=== PATIENT | female | born 1975 | race Caucasian/White ===

== ENCOUNTER → 2020-09-22 12:23 | Outpatient (CLI) | payer OTHER, SELFPAY ==
--- NOTE | ~2020-09-22 | MM_ITS ---
EXAMINATION: MM screening [facility] BI w henri HISTORY: Screening TECHNIQUE: Craniocaudal and mediolateral oblique 3-D tomosynthesis images were obtained and synthetic 2-D images were generated. CAD analysis was submitted and interpreted. COMPARISON: Comparison to multiple prior studies sequentially, with oldest reviewed study dated 04/2016. BREAST PARENCHYMAL COMPOSITION: There are scattered areas of fibroglandular density. FINDINGS: There is no evidence of suspicious mass, calcification, or architectural distortion to sugg est malignancy in either breast. There has been no suspicious interval change. IMPRESSION: 1. No mammographic evidence of malignancy. 2. Recommend routine screening mammography in one year. BI-RADS Category 1: Negative Reviewed, dictated and finalized at location A.
== END ==
PROVIDERS: Visit Provider Obstetrics & Gynecology
DX: Z12.31 Encounter for screening mammogram for malignant neoplasm of breast (principal)
CPT/HCPCS: 77063; 77067

== ENCOUNTER → 2021-11-22 13:49 | Outpatient (CLI) | payer OTHER, SELFPAY ==
--- NOTE | ~2021-11-22 | MMUS_ITS ---
EXAMINATION: MM diagnostic [facility] BI w henri, US breast BI limited HISTORY: Palpable lumps in the upper outer quadrant of the right breast and upper inner quadrant of t he left breast TECHNIQUE: Craniocaudal, mediolateral, and mediolateral oblique 3-D tomosynthesis images of the breas ts were performed and synthetic 2-D images were generated. CAD analysis was submitted and interpreted . High resolution limited bilateral breast ultrasound was performed. COMPARISON: 09/22/2020, 11/13/2018 BREAST PARENCHYMAL COMPOSITION: There are scattered areas of fibroglandular density. FINDINGS: MAMMOGRAPHIC FINDINGS: There is no suspicious mass, calcification, or architectural distortion in either breast to suggest malignancy. Bilateral reduction in breast size consistent with history of intentional weight loss. No mammographic correlate is identified for the reported palpable abnormality of concern in either [address] ULTRASOUND: There is no evidence of focal abnormal solid or cystic mass in the vicinity of the reported palpable abnormality of concern in either breast. IMPRESSION: 1. No specific mammographic or sonographic correlate is identified for the reported palpable abnormal ity of concern in either breast. Further evaluation at this time should be based on clinical assessme nt. Continued follow-up physical examination is recommended. 2. Recommend routine screening mammography in one year. BI-RADS Category 1: Negative Reviewed, dictated and finalized at location A. IMPRESSION: 1. No specific mammographic or sonographic correlate is identified for the repo rted palpable abnormality of concern in either breast. Further evaluation at th is time should be based on clinical assessment. Continued follow-up physical ex amination is recommended. 2. Recommend routine screening mammography in one year. BI-RADS Category 1: Negative
== END ==
PROVIDERS: PCP Physician Assistant; Visit Provider Nurse Practitioner
DX: N63.20 Unspecified lump in the left breast, unspecified quadrant (principal)
CPT/HCPCS: 76642; 77062; 77066; G0279

== ENCOUNTER 2022-02-11 13:46 | Outpatient (CLI) | payer OTHER, SELFPAY | END 2022-02-11 13:47 | disposition home or self-care (01) | PROVIDERS: PCP Physician Assistant; Visit Provider Obstetrics & Gynecology | DX: D25.9 Leiomyoma of uterus, unspecified (principal) | CPT/HCPCS: 36415; 86850; 86900; 86901 ==

== ENCOUNTER 2022-02-16 00:43 | Day surgery (SDC) | payer OTHER, SELFPAY ==
[2022-02-08 09:20] VITALS: BMI 31.7
--- NOTE | 2022-02-08 09:25 | PC.NURSE ---
Report to the Outpatient Waiting Room, entrance under the green pavilion located off [facility], at time 7:30 on date 02/16/22. Planned Procedure Time: 9:30. Time changes happen often and if your time is changed the preop area will call you the afternoon before. - You and your visitor will be asked to self-screen and do not enter if you have any COVID symptoms. - We encourage only one visitor and NO visitors under age 16 are allowed at this time. Your visitor will receive communication by the phone number that is given day of service. - The patient visitor is requested to social distance or may leave the building when not with patient due to restrictions. - A mask is OPTIONAL within the hospital. Patients may have clear liquids (water, carbonated beverages, clear teas, apple juice) until 3 hours prior to surgery (6:30) with a maximum of 20 ounces. - No food from midnight until time of surgery Take the following medications with a SIP of water the morning of surgery: BUPROPION, FLUOXETINE, HYDROXYZINE, CLONAZEPAM IF NEEDED Medications to discontinue per physician: VITAMINS Date to take last dose: 02/12/22 Please no make-up, nail amharic, hairspray, perfume, deodorant, or body powder the day of surgery. No jewelry (including any body piercings) or valuables the day of surgery, leave them at home. Please take a shower or bath the night before, or the morning of, surgery with an antibacterial soap. Wear comfortable, loose fitting clothing. - Jewelry must be removed prior to entering the operating room. Rings and piercings that are not removed may be cut off. - The hospital will not accept responsibility for valuables. - Please leave all valuables, including medications, at home the day of surgery. If you are going home after surgery, a licensed driver's education instructor must drive you home. - NO public transportation without another adult. - We recommend that an adult stay with you for 24 hours following discharge. - We also recommend that you do not drive, make important decision, drink alcoholic beverages, or take any drugs that were not prescribed by your health care provider for at least 24 hours after your discharge time. Follow any additional instructions given to you from your surgeon. If you or anyone in your household have experienced Covid symptoms in the past week, please notify your surgeon or the nurse liaison at the phone number below for possible testing. Telephone instructions given to PT Kyrie MENJIVAR and asked if any additional questions and then verbalized understanding. Patient advised to call surgeon office or pre surgery nurse liaison [phone] if any additional questions.
[2022-02-16] VITALS (11 sets, daily range): BP systolic 86–115; BP diastolic 54–83; PULSE 70–101; RESP 8–18; TEMP 36.4–37.2; O2SAT 95–100
[2022-02-16] MEDS: ACETAMINOPHEN 500 MG TABLET 1000 MG PO (08:14)
[2022-02-16] MEDS: SCOPOLAMINE 1.5 MG PATCH TRANSDERM (08:15)
[2022-02-16] MEDS: LACTATED RINGERS 1,000 ML 30 ML IV CONT ×2 (08:49→11:03)
[2022-02-16] MEDS: KETOROLAC 15 MG/ML VIAL (*BKC) IV PUSH (08:52)
--- NOTE | 2022-02-16 08:56 | WPDHPUPDATE1 ---
History and Physical Update Update Date/Time: 02/16/22 08:56 History and Physical has been reviewed, including an updated exam of the patient. There are NO changes in the patient's condition. Risks, benefits, and alternatives have been discussed and questions answered. Patient agrees to proceed with procedure.
--- NOTE | 2022-02-16 09:17 | P.PNAN_ITS ---
Anes - Initial Pre Proc Eval Procedure: Operation Date: 02/16/22 09:30 Proposed Procedures p Total Laparoscopic Hysterectomy, Bilateral Salpingo Oophorectomy - Jasmin Meléndez MD Date/Time: 02/16/22 09:17 Surgeon: Jasmin Meléndez MD Pre Op Diagnosis: uterine leiomyoma Patient Data Age: 46 Gender: F Height: 1.63 m Weight: 85.2 kg Last Vital Signs Temp 36.5 C 02/16/22 07:53 Pulse 85 02/16/22 07:53 Resp 14 02/16/22 07:53 BP 115/83 02/16/22 07:53 Pulse Ox 100 02/16/22 07:53 O2 Del Method Room Air 02/16/22 07:53 Allergies Allergy/AdvReac Type Severity Reaction Status Date / Time NSAIDS (Non-Steroidal AdvReac Mild Other Verified 02/16/22 08:10 Anti-Inflamma Home Medications Medication Instructions Recorded Confirmed Type bupropion HCl 300 mg 24 hr tablet, 300 mg PO DAILY 02/08/22 02/16/22 History extended release clonazepam 0.5 mg tablet 0.5 mg PO BID PRN Anxiety 02/08/22 02/16/22 History fluoxetine 10 mg capsule 10 mg PO DAILY 02/08/22 02/16/22 History hydroxyzine pamoate 25 mg capsule 25 mg PO BID 02/08/22 02/16/22 History multivitamin 1 tablet PO DAILY 02/08/22 02/16/22 History Patient hx anesthesia problems: none Family hx anesthesia problems: none Results Review: All pre-operative results and documents have been reviewed as part of the pre- operative evaluation. [facility] Past Medical History Medical History (Updated 02/16/22 @ 09:17 by Matt Oro MD) Obesity Surgical History Surgical History (Updated 02/16/22 @ 09:17 by Matt Oro MD) S/P gastric sleeve procedure Social History Social History Smoking status: Never smoker Alcohol intake: current Drinks per week: 2 Substance use: current Substance use type: marijuana Living arrangements: alone Spiritual care concerns: No Anes - Eval Final PreProcedure Day of Procedure 02/16/22 09:17 Patient weight: obese Heart: regular rate and rhythm Lungs: clear to auscultation Airway: Mallampati scale class II Neurological: alert and oriented Last oral intake: >/= 8 hours ASA classification: III Emergent: no Anesthetic plan: proceed Anesthesia type and monitoring: general ETT and standard monitoring Results Review: All pre-operative results and documents have been reviewed as part of the pre- operative evaluation. Informed Consent: The patient's anesthetic plan and its attendant risks and benefits were discussed with the patient/family/POA. Questions were solicited and answers provided to the satisfaction of the patient/family/POA.
[2022-02-16] MEDS: ceFAZolin 2 GM/D5W 50 ML 2 GM/50 ML BAG IVPB (09:30)
[2022-02-16] MEDS: ceFAZolin SODIUM 1 GM VIAL IRRIGATION (09:57)
--- NOTE | 2022-02-16 12:18 | PC.NURSE ---
This patient, Dominick Dickson, was received from PACU on 02/16/22 at 1218. Patient/family oriented to unit policies and routines
[2022-02-16] MEDS: DEXTROSE 5%/0.45% SOD CHL 1,000 ML 125 ML IV CONT (12:39)
[2022-02-16] MEDS: ONDANSETRON INJ 4 MG/2 ML VIAL IV PUSH (12:39)
[2022-02-16] MEDS: KETOROLAC 30 MG/ML VIAL (*BKC) IV PUSH (14:02)
[2022-02-16] MEDS: HYDROcodone/acetaminophen (*CRX) 5-325 MG TABLET 1 TAB PO ×2 (15:02→18:00)
[2022-02-16] MEDS: ESTRADIOL 7 DAY 0.1 MG PATCH TRANSDERM (17:49)
[2022-02-16] MEDS: clonazePAM (*CRX) 0.5 MG TABLET PO (17:49)
[2022-02-16] MEDS: hydrOXYzine pamoate 25 MG CAPSULE PO (17:49)
[2022-02-17] MEDS: HYDROcodone/acetaminophen (*CRX) 5-325 MG TABLET 1 TAB PO (00:54)
[2022-02-17 03:50] VITALS: BP 97/59; PULSE 85; RESP 18; TEMP 36.7; O2SAT 97
[2022-02-17 08:00] VITALS: BP 98/55; PULSE 90; RESP 16; TEMP 37.7; O2SAT 97
--- NOTE | 2022-02-17 08:55 | PM.GYNPNOP ---
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 PRINTING MACHINIST- PN:Subj Post-Op Subjective Date/time seen: 02/17/22 08:55 Subjective: patient has no complaints, patient desires discharge, pain is well controlled and patient is tolerating oral intake Exam Const: General: comfortable and no acute distress GI: GI Palp: Yes Soft to palpation Auscultation: normal bowel sounds Other: incisions CDI Extrem: General: no calf tenderness LABEL PRINTING MACHINIST - PN: Obj Data Vital Signs Vital Signs: Vital Signs - 24 hr 02/16/22 11:03 02/16/22 11:15 02/16/22 11:25 Temperature 97.6 F Pulse Rate 70 88 89 Respiratory Rate 8 L 12 13 Blood Pressure 86/58 L 105/67 94/59 L Pulse Oximetry 95 99 100 Oxygen Delivery Simple Face Mask Simple Face Mask Simple Face Mask Oxygen Flow Rate 8 8 8 02/16/22 11:32 02/16/22 11:45 02/16/22 12:00 Temperature 98.3 F Pulse Rate 87 77 72 Respiratory Rate 13 16 12 Blood Pressure 100/54 L 92/62 L 94/61 L Pulse Oximetry 100 97 96 Oxygen Delivery Room Air Room Air Room Air Oxygen Flow Rate 02/16/22 12:30 02/16/22 16:20 02/16/22 20:01 Temperature 98.0 F 99.0 F 98.2 F Pulse Rate 75 101 H 100 Respiratory Rate 18 18 18 Blood Pressure 95/54 L 105/66 110/63 Pulse Oximetry 100 95 98 Oxygen Delivery Oxygen Flow Rate 02/16/22 22:03 02/17/22 03:50 02/17/22 08:00 Temperature 98.8 F 98.1 F 99.8 F H Pulse Rate 92 85 90 Respiratory Rate 17 18 16 Blood Pressure 105/58 L 97/59 L 98/55 L Pulse Oximetry 96 97 97 Oxygen Delivery Oxygen Flow Rate Intake/Output Intake/Output: Intake & Output 02/14/22 02/15/22 02/16/22 02/17/22 23:59 23:59 23:59 23:59 Intake Total 2900 Output Total 430 Balance 2470 Meds/Results Medications: Active Medications Generic Name Dose Route Start Last Admin Trade Name Freq PRN Reason Stop Dose Admin Hydrocodone Bitart/Acetaminophen 1 tab 02/16/22 12:18 02/17/22 00:54 Hydrocodone/Acetaminophen (*Crx) 5-325 Mg Tablet PO 1 tab Q3H PRN Administration Pain Rated 5 or Less Hydrocodone Bitart/Acetaminophen 1 tab 02/16/22 12:18 Hydrocodone/Acetaminophen (*Crx) 10-325 Mg Tablet PO Q3H PRN Pain Rated 6 or Greater Bupropion HCl 300 mg 02/17/22 09:00 Bupropion Hcl Xl (24 Hr) 150 Mg Tabcr PO DAILY GRACIE Clonazepam 0.5 mg 02/16/22 12:18 02/16/22 17:49 Clonazepam (*Crx) 0.5 Mg Tablet PO 0.5 mg BID PRN Administration Anxiety Estradiol 0.1 mg 02/16/22 14:30 02/16/22 17:49 Estradiol 7 Day 0.1 Mg Patch TRANSDERM 0.1 mg We@0900 GRACIE Administration Fluoxetine HCl 10 mg 02/17/22 09:00 Fluoxetine Hcl 10 Mg Capsule PO DAILY GRACIE Hydroxyzine Pamoate 25 mg 02/16/22 17:00 02/16/22 17:49 Hydroxyzine Pamoate 25 Mg Capsule PO 25 mg BID GRACIE Administration Ketorolac Tromethamine 30 mg 02/16/22 12:18 02/16/22 14:02 Ketorolac 30 Mg/Ml Vial (*Bkc) IV PUSH 02/21/22 12:17 30 mg Q6H PRN Administration Pain Rated 4-6 Multivitamins Therapeutic 1 tablet 02/17/22 09:00 Multivitamins Therapeutic Tab (*Bkc) PO DAILY GRACIE Naloxone HCl 0.1 mg 02/16/22 12:18 Naloxone Hcl 0.4 Mg/Ml Vial IV PUSH Q2M PRN Respiratory rate less than 10 Ondansetron HCl 4 mg 02/16/22 12:18 02/16/22 12:39 Ondansetron Inj 4 Mg/2 Ml Vial IV PUSH 4 mg Q6H PRN Administration Nausea And Vomiting
[2022-02-17] MEDS: buPROPion HCL XL (24 HR) 150 MG TABCR 300 MG PO (09:03)
[2022-02-17] MEDS: MULTIVITAMINS THERAPEUTIC TAB (*BKC) 1 TABLET PO (09:04)
[2022-02-17] MEDS: hydrOXYzine pamoate 25 MG CAPSULE PO (09:04)
[2022-02-17] MEDS: FLUoxetine HCL 10 MG CAPSULE PO (09:04)
[2022-02-17] MEDS: HYDROcodone/acetaminophen (*CRX) 10-325 MG TABLET 1 TAB PO (09:11)
[2022-02-17] MEDS: DOCUSATE SODIUM 100 MG CAPSULE PO (09:15)
--- NOTE | 2022-02-17 10:48 | WPDANESPN ---
Anes - Prog Note Post-Op Date/Time: 02/17/22 10:48 Cardiovascular status: normal Respiratory status: normal Airway patency: baseline Mental status: baseline Post-Op hydration status: normal Vital Signs: Last Vital Signs Temp 37.7 C H 02/17/22 08:00 Pulse 90 02/17/22 08:00 Resp 16 02/17/22 08:00 BP 98/55 L 02/17/22 08:00 Pulse Ox 97 02/17/22 08:00 O2 Del Method Room Air 02/16/22 12:00 O2 Flow Rate 8 02/16/22 11:25 Pain Score (VAS): 2/10 I/O: Intake & Output 02/16/22 02/17/22 02/17/22 23:59 07:59 15:59 Intake Total 1800 Output Total 400 Balance 1400 Post-procedural complaints: none Patient Feedback: Patient satisfied with anesthetic care.
--- NOTE | 2022-02-21 18:54 | P.OP_ITS ---
Procedure Note - Detailed Date of Procedure 02/16/22 Pre-op Diagnosis uterine leiomyoma, menorrhagia, dysmenorrhea Post-op Diagnosis Same Procedure Performed total laparoscopic hysterectomy with bilateral salpingo-oophorectomy Surgeon Jasmin Meléndez MD Anesthesia General Indications uterine leiomyoma, menorrhagia, dysmenorrhea Findings enlarged fibroid uterus, normal-appearing tubes and ovaries Description of Procedure This patient was taken to the operating room. She was prepped and draped in the dorsal lithotomy position after induction of general anesthesia. The uterine manipulator and Corinna cup were placed. This was done with a speculum and tenaculum. The speculum was placed. The cervix was grasped with a tenaculum. The stay sutures were placed at 3 and 9:00 a.m.. The stay sutures of 0 Vicryl were brought through the appropriately sized Corinna cup. The tip of the AURELIO manipulator was placed in the intrauterine cavity. The cup was slid into place around the cervix and into the fornices. It was locked into place. The sutures were then wrapped around the handle and tied under tension. A 5 mm skin incision was made in the left upper quadrant the abdomen. A 5 mm trocar was inserted into the intrauterine cavity under direct visualization of the scope. Pneumoperitoneum was achieved. A left lower quadrant 11 mm incision was made with scalpel. An 11 mm trocar was inserted into the anterior abdominal cavity under direct visualization the scope. A 5 mm infraumbilical incision was made with a scalpel and a 5 mm trocar was inserted the intra-abdominal cavity under direct visualization of the scope. Bilateral ureteral lysis was performed. This was done from the pelvic brim down to the uterine artery. This was done with careful dissection using sharp and blunt dissection. The infundibulopelvic ligaments were isolated after identification of the ureters bilaterally. These infundibulopelvic ligaments were cauterized and transected with LigaSure cautery. The para ovarian tissue was cauterized and transected with LigaSure cautery bilaterally. Moving around the ovary into the broad ligament the tissue was cauterized transected with LigaSure cautery. The round ligaments were cauterized transected with LigaSure cautery this was all done in a bilateral fashion. In a stepwise fashion along the lateral aspects of the uterus the round ligament and broad ligaments were ca uterized transected down to the level of the uterine arteries. A bladder flap was created in the bladder was moved distally to the end of the cervix and over the Corinna cup. The bilateral uterine arteries were cauterized and transected. Colpotomy was then performed. In a circumferential fashion the vagina was transected using unipolar cautery. The incision was made down on the Corinna cup. The uterus, cervix, fallopian tubes and ovaries were taken out through the vagina. A pneumo occluder was placed in the vagina. The vaginal cuff was closed with a 0 V lock suture in a running fashion. The p shavonne was irrigated with copious amounts antibiotic irrigation. The ureters were again examined and found to be intact and flowing freely under the uterine arteries into the bladder. The bladder was intact. It was examined directly. The vagina was irrigated with Betadine solution after removal of the Pneumo occluder. The patient was taken to recovery room. She was stable condition. Sponge lap and needle counts were correct x2. Estimated Blood Loss -75.0 Urine Output -75.0 Drains Yes Packing No Pathology Yes Complications No immediate complications Condition Stable Disposition Floor
== END 2022-02-17 10:47 | disposition home or self-care (01) ==
LOC: ANHSURGERY 11:26 → ANHOB2 12:22
PROVIDERS: PCP Physician Assistant; Visit Provider Obstetrics & Gynecology
PROC: 0UT9FZZ Resection of Uterus, Via Natural or Artificial Opening With Percutaneous Endoscopic Assistance (ICD-10-PCS; CPT 58571; principal; 2022-02-16 09:30)
DX: N92.0 Excessive and frequent menstruation with regular cycle (principal); N94.6 Dysmenorrhea, unspecified; N80.00 Endometriosis of the uterus, unspecified; N83.02 Follicular cyst of left ovary; N83.01 Follicular cyst of right ovary; Z98.84 Bariatric surgery status; E66.9 Obesity, unspecified; Z68.32 Body mass index [BMI] 32.0-32.9, adult
CPT/HCPCS: 58571; 88307; 99199; A9270; J0330; J0690; J1885; J2250; J2405; J2704; J2710; J3010; J7030; J7120

== ENCOUNTER 2022-07-15 00:25 | Day surgery (SDC) | payer OTHER, SELFPAY ==
[2022-07-11 09:12] VITALS: BMI 31.8
--- NOTE | 2022-07-14 17:09 | PM.HPGS ---
History of Present Illness History of Present Illness Consent: Risks, benefits, and alternatives have been discussed and questions answered. Patient agrees to proceed with procedure. Chief complaint: neoplasm screening Narrative: Dominick Dickson is a 47 year old female Referred for colon cancer screening. Review of Systems Review of Systems: All systems reviewed & are unremarkable except as noted in HPI and below PMFSH Past Medical History Medical History Obesity Surgical History Surgical History S/P gastric sleeve procedure Social History Social History Smoking status: Never smoker Alcohol intake: current Drinks per week: 2 Alcohol use details: very rare Substance use: current Substance use type: marijuana Living arrangements: alone Spiritual care concerns: No Meds Home Medications and Allergies Home Medications Medication Instructions Recorded Confirmed Type bupropion HCl 300 mg 24 hr tablet, 300 mg PO DAILY 02/08/22 07/15/22 History extended release clonazepam 0.5 mg tablet 0.5 mg PO BID PRN Anxiety 02/08/22 07/15/22 History fluoxetine 10 mg capsule 10 mg PO DAILY 02/08/22 07/15/22 History hydroxyzine pamoate 25 mg capsule 25 mg PO BID 02/08/22 07/15/22 History multivitamin 1 tablet PO DAILY 02/08/22 07/15/22 History hydrocodone 5 mg-acetaminophen 325 1 tablet PO Q4H PRN pain #25 tabs 02/16/22 07/15/22 Rx mg tablet alprazolam 0.5 mg tablet 0.5 mg PO PRN PRN Anxiety 07/11/22 07/15/22 History calcium 600 mg PO DAILY 07/11/22 07/15/22 History iron 325 mg PO DAILY 07/11/22 07/15/22 History Allergies Allergy/AdvReac Type Severity Reaction Status Date / Time NSAIDS (Non-Steroidal AdvReac Mild Other Verified 07/15/22 06:54 Anti-Inflamma Exam Const: General: alert Orientation/consciousness: patient oriented x3 Resp: Auscultation: clear to auscultation bilaterally Cardio: Rhythm: regular rhythm GI: GI Palp: Yes Soft to palpation and No Tenderness to palpation present (GI) Neuro: General: patient oriented x3 Assessment and Plan Assessment and plan (1) Colon cancer screening: Code(s): Z12.11 - Encounter for screening for malignant neoplasm of colon Status: Acute Assessment and Plan: Colonoscopy with possible biopsy or polypectomy or cautery or injection of substances.
[2022-07-15 06:55] VITALS: BP 94/68; PULSE 70; RESP 18; TEMP 36.4; O2SAT 100; BMI 31.8
[2022-07-15] MEDS: LACTATED RINGERS 1,000 ML 150 ML IV CONT (07:17)
--- NOTE | 2022-07-15 07:34 | WPDANESEPPF ---
Anes - Initial Pre Proc Eval Procedure: Operation Date: 07/15/22 08:00 Proposed Procedures p Screening Colonoscopy - Lucho Kaur MD Date/Time: 07/15/22 07:34 Surgeon: Luhco Kaur MD Pre Op Diagnosis: neoplasm screening Patient Data Age: 47 Gender: F Height: 1.63 m Weight: 84.3 kg Last Vital Signs Temp 97.5 F L 07/15/22 06:55 Pulse 70 07/15/22 06:55 Resp 18 07/15/22 06:55 BP 94/68 L 07/15/22 06:55 Pulse Ox 100 07/15/22 06:55 O2 Del Method Room Air 07/15/22 06:55 Allergies Allergy/AdvReac Type Severity Reaction Status Date / Time NSAIDS (Non-Steroidal AdvReac Mild Other Verified 07/15/22 06:54 Anti-Inflamma Home Medications Medication Instructions Recorded Confirmed Type bupropion HCl 300 mg 24 hr tablet, 300 mg PO DAILY 02/08/22 07/15/22 History extended release clonazepam 0.5 mg tablet 0.5 mg PO BID PRN Anxiety 02/08/22 07/15/22 History fluoxetine 10 mg capsule 10 mg PO DAILY 02/08/22 07/15/22 History hydroxyzine pamoate 25 mg capsule 25 mg PO BID 02/08/22 07/15/22 History multivitamin 1 tablet PO DAILY 02/08/22 07/15/22 History hydrocodone 5 mg-acetaminophen 325 1 tablet PO Q4H PRN pain #25 tabs 02/16/22 07/15/22 Rx mg tablet alprazolam 0.5 mg tablet 0.5 mg PO PRN PRN Anxiety 07/11/22 07/15/22 History calcium 600 mg PO DAILY 07/11/22 07/15/22 History iron 325 mg PO DAILY 07/11/22 07/15/22 History Patient hx anesthesia problems: none Family hx anesthesia problems: none Results Review: All pre-operative results and documents have been reviewed as part of the pre-operative evaluation. [facility] Past Medical History Medical History Obesity Surgical History Surgical History S/P gastric sleeve procedure Social History Social History Smoking status: Never smoker Alcohol intake: current Drinks per week: 2 Alcohol use details: very rare Substance use: current Substance use type: marijuana Living arrangements: alone Spiritual care concerns: No Anes - Eval Final PreProcedure Day of Procedure 07/15/22 07:34 Patient weight: obese Heart: regular rate and rhythm Lungs: clear to auscultation Airway: Mallampati scale class II Neurological: alert and oriented Last oral intake: >/= 8 hours ASA classification: II Emergent: no Anesthetic plan: proceed Anesthesia type and monitoring: general GIVS and standard monitoring Results Review: All pre-operative results and documents have been reviewed as part of the pre-operative evaluation. Informed Consent: The patient's anesthetic plan and its attendant risks and benefits were discussed with the patient/family/POA. Questions were solicited and answers provided to the satisfaction of the patient/family/POA.
[2022-07-15 08:18] VITALS: BP 82/49; PULSE 78; RESP 21; O2SAT 100
[2022-07-15 08:28] VITALS: BP 96/61; PULSE 75; RESP 21; O2SAT 100
[2022-07-15 08:38] VITALS: BP 106/72; PULSE 73; RESP 16; O2SAT 100
== END 2022-07-15 08:40 | disposition home or self-care (01) ==
PROVIDERS: PCP Physician Assistant; Visit Provider Internal Medicine Gastroenterology
PROC: 0DJD8ZZ Inspection of Lower Intestinal Tract, Via Natural or Artificial Opening Endoscopic (ICD-10-PCS; CPT 45378; principal; 2022-07-15 08:00)
DX: Z12.11 Encounter for screening for malignant neoplasm of colon (principal); K57.30 Diverticulosis of large intestine without perforation or abscess without bleeding; Z98.84 Bariatric surgery status; E66.9 Obesity, unspecified; Z68.31 Body mass index [BMI] 31.0-31.9, adult; F12.90 Cannabis use, unspecified, uncomplicated
CPT/HCPCS: 45378; J7120

== ENCOUNTER 2023-05-24 03:03 | Emergency (ER) | payer OTHER, SELFPAY ==
--- NOTE | ~2023-05-24 | XR_ITS ---
Clinical Indication: Cough PA and lateral views of the chest: Comparison: None Findings: The lungs are clear, without evidence of focal consolidation or pleural effusion. Cardiome diastinal silhouette is within normal limits. Bones and soft tissues are unremarkable. Impression: Normal chest. Reviewed, dictated and finalized at [facility]. OMER RESPONSE REPRESENTATIVE Impression: Normal chest.
[2023-05-24 03:12] VITALS: BP 129/91; PULSE 81; RESP 14; TEMP 36.7; O2SAT 98
--- NOTE | 2023-05-24 03:17 | ED.URI ---
HPI - URI/Sore Throat General Chief Complaint: Upper Respiratory Infection Stated Complaint: Upper Respiratory Time Seen by Provider: 05/24/23 03:17 Source: patient Mode of arrival: ambulatory Limitations: no limitations History of Present Illness HPI Narrative: Patient is a 47-year-old female with cough and congestion for 5 days. She was seen 3 days ago and was given Tessalon and prednisone. She is getting worse despite medication. MD elicited complaint: cough, rhinorrhea and nasal congestion Onset (ago): day(s) (5) Consistency: constant and progressively worsening Severity: moderate Pain scale (0-10): 4 Description of mucous: clear and watery Able to tolerate fluids by mouth: Yes Exacerbating factors: nothing Relieving factors: nothing Context: sick contacts Associated symptoms: rhinorrhea, nasal congestion, cough, chest pain ( Only with breathing) and shortness of breath Treatments prior to arrival: other ( Tessalon and prednisone) Related Data Home Medications Medication Instructions Recorded Confirmed bupropion HCl 300 mg 24 hr tablet, 300 mg PO DAILY 02/08/22 07/15/22 extended release clonazepam 0.5 mg tablet 0.5 mg PO BID PRN Anxiety 02/08/22 07/15/22 fluoxetine 10 mg capsule 10 mg PO DAILY 02/08/22 07/15/22 hydroxyzine pamoate 25 mg capsule 25 mg PO BID 02/08/22 07/15/22 multivitamin 1 tablet PO DAILY 02/08/22 07/15/22 alprazolam 0.5 mg tablet 0.5 mg PO PRN PRN Anxiety 07/11/22 07/15/22 calcium 600 mg PO DAILY 07/11/22 07/15/22 iron 325 mg PO DAILY 07/11/22 07/15/22 Allergies Allergy/AdvReac Type Severity Reaction Status Date / Time NSAIDS (Non-Steroidal AdvReac Mild Other Verified 05/24/23 03:11 Anti-Inflamma Review of Systems Review of Systems: All systems reviewed & are unremarkable except as noted in HPI and below Constitutional: Constitutional: Reports no additional constitutional complaints Eyes: Eyes: Reports no additional eye complaints ENT: Reports system reviewed and no additional complaints, except as documented Cardiovascular: Cardiovascular: Reports no additional cardiovascular complaints Respiratory: Respiratory: Reports no additional respiratory complaints Gastrointestinal: Gastrointestinal: Reports no additional gastrointestinal complaints Genitourinary: Genitourinary: Reports no additional female genitourinary complaints Musculoskeletal: Musculoskeletal: Reports no additional musculoskeletal complaints Integumentary/Breasts: Skin/Breast: Reports system reviewed and no additional complaints, except as docu Neurologic: Reports system reviewed and no additional complaints, except as documented Psychiatric: Psychiatric: Reports no additional psychiatric complaints Endocrine: Endocrine: Reports no additional endocrine complaints Hematologic/Lymphatic: Hematologic/Lymphatic: Reports no additional hematologic/lymphatic complaints Allergic/Immunologic: Allergic/Immunologic: Reports no additional allergic/immunologic complaints [facility] Past Medical History Medical History Obesity Surgical History Surgical History S/P gastric sleeve procedure Social History Social History Smoking status: Never smoker Alcohol intake: current Drinks per week: 2 Alcohol use details: very rare Substance use: current Substance use type: marijuana Living arrangements: alone Spiritual care concerns: No Exam Const: General: healthy appearing Nutritional Appearance: well nourished Orientation/consciousness: patient oriented x3 HENMT: Head: normal to inspection Ears: external ears normal Face/Nose/Sinus: Normal external nose present Eyes: Conjunctivae: conjunctivae normal Pupils: Equal, round and reactive pupils present EOM: EOMs intact bilaterally Neck: Neck: normal visual inspection Chest: Chest palp
--- NOTE | 2023-05-24 03:29 | ECG_ITS ---
Measurements Intervals [place] Rate: 72 P: 38 WI: 166 QRS: -1 QRSD: 80 T: 32 QT: 366 QTc: 403 Interpretive Statements SINUS RHYTHM LOW QRS VOLTAGE IN PRECORDIAL LEADS [QRS DEFLECTION < 1.0 mV IN CHEST LEADS] POSSIBLE RIGHT VENTRICULAR CONDUCTION DELAY [RSR (QR) IN V1/V2] NO PREVIOUS ECG AVAILABLE FOR COMPARISON Electronically Signed On 05-24-2023 16:17:21 EVALUATION ASSISTANT by Nakul Malik M.D.
[2023-05-24 03:42] VITALS: BP 115/79; PULSE 76; PULSE 78; RESP 16; RESP 20; O2SAT 97
[2023-05-24 03:46] LABS: Basophils Absolute Auto 0.02 K/mm3 (0.00-0.10); Basophils Percent Auto 0.3 % (0.0-1.0); Eosinophils Absolute Auto 0.01 K/mm3 (0.02-0.50); Eosinophils Percent Auto 0.1 % (1.0-6.0); Hematocrit 36.5 % (35.0-49.0); Hemoglobin 11.8 g/dL (12.0-15.0); Immature Granulocyte Absolute 0.01 K/mm3 (0.00-0.00); Immature Granulocyte Percent A 0.1 % (0.0-0.0); Lymphocytes Percent Auto 38.6 % (18.0-42.0); Mean Corpuscular HGB Conc 32.3 g/dL (32.0-36.0); Mean Corpuscular Hemoglobin 28.7 pg (27.0-31.0); Mean Corpuscular Volume 88.8 fL (78.0-102.0); Mean Platelet Volume 10.4 fl (9.2-11.8); Monocytes Absolute Auto 0.49 K/mm3 (0.10-0.90); Monocytes Percent Auto 6.5 % (2.0-11.0); Neutrophils Absolute Auto 4.1 K/mm3 (1.7-7.2); Neutrophils Percent Auto 54.4 % (50.0-70.0); Platelet Count Result 191 K/mm3 (150-420); Red Blood Count 4.11 M/mm3 (4.20-5.40); Red Cell Distribution Width 12.8 % (11.6-14.4); White Blood Count 7.5 K/mm3 (4.8-10.8)
[2023-05-24 04:01] VITALS: BP 117/76; PULSE 87; RESP 16; O2SAT 98
[2023-05-24 04:03] LABS: D Dimer 0.19 mg/L (0.19-0.50)
[2023-05-24 04:05] LABS: SARS-CoV-2 RNA PCR Negative (Negative)
[2023-05-24 04:06] LABS: Influenza A QL RT-PCR Negative (Negative); Influenza B QL RT-PCR Negative (Negative); RSV RNA, RT-PCR Negative (Negative)
[2023-05-24 04:11] LABS: Alanine Aminotransferase 44 U/L (14-59); Albumin Level 3.6 g/dL (3.4-5.0); Alkaline Phosphatase 85 U/L (46-116); Anion Gap 9 mmol/L (8-16); Aspartate Amino Transferase 25 U/L (15-37); Bilirubin,Total 0.3 mg/dL (0.00-1.00); Blood Urea Nitrogen 7 mg/dL (7-18); Calcium 8.3 mg/dL (8.5-10.1); Carbon Dioxide 31 mmol/L (21-32); Chloride 105 mmol/L (98-108); Estimated CRCL calculation 94 ml/min; Estimated Glomerular Filt Rate > 60; Glucose 89 mg/dL (70-99); Osmolality Calculated 297 mOsm/kg (285-295); Potassium 3.4 mmol/L (3.5-5.1); Sodium 145 mmol/L (136-145); Total Protein 6.9 g/dL (6.4-8.2)
[2023-05-24 04:12] LABS: NT Pro B Type Natriuretic Pept 131 pg/mL (0-125); Troponin I 4.5 ng/L (0.00-60.4)
[2023-05-24] MEDS: POTASSIUM CHLORIDE 20 MEQ ER TABLET PO (04:40)
[2023-05-24] MEDS: levoFLOXacin 500 MG TABLET PO (04:43)
== END 2023-05-24 04:48 | disposition home or self-care (01) ==
PROVIDERS: Emergency Provider Emergency Medicine; PCP Physician Assistant
DX: J40 Bronchitis, not specified as acute or chronic (principal); J18.9 Pneumonia, unspecified organism; Z20.822 Contact with and (suspected) exposure to COVID-19
CPT/HCPCS: 36415; 71046; 80053; 83880; 84484; 85025; 85380; 87637; 93005; 99284; A9270

== ENCOUNTER 2023-10-19 07:01 | Outpatient (CLI) | payer OTHER, SELFPAY ==
--- NOTE | ~2023-10-19 | MM_ITS ---
EXAMINATION: MM screening vargas BI w henri HISTORY: Screening TECHNIQUE: Craniocaudal and mediolateral oblique 3-D tomosynthesis images were obtained and synthetic 2-D images were generated. CAD analysis was submitted and interpreted. COMPARISON: Comparison to multiple prior studies sequentially, with oldest reviewed study dated 04/2016. BREAST PARENCHYMAL COMPOSITION: Not dense: There are scattered areas of fibroglandular density. FINDINGS: There is no evidence of suspicious mass, calcification, or architectural distortion to sugg est malignancy in either breast. There has been no suspicious interval change. IMPRESSION: 1. No mammographic evidence of malignancy. 2. Recommend routine screening mammography in one year. BI-RADS Category 1: Negative Reviewed, dictated and finalized at location [facility].
== END 2023-10-19 07:02 | disposition home or self-care (01) ==
LOC: CHSIMG 07:05
PROVIDERS: PCP Physician Assistant; Visit Provider Obstetrics & Gynecology
DX: Z12.31 Encounter for screening mammogram for malignant neoplasm of breast (principal)
CPT/HCPCS: 77063; 77067